=== PATIENT | female | born 1950 | race Caucasian/White ===

== ENCOUNTER 2022-07-18 12:33 | Inpatient (IN) | payer OTHER ==
[2022-07-18 15:12] VITALS: BMI 23.1
[2022-07-18] MEDS ORDERED: ACETAMINOPHEN 325 MG TABLET (FP) PO PRN ×2 (15:43)
[2022-07-18] MEDS ORDERED: MAG HYDROX/AL HYDROX/SIMETH 30 ML UNIT-DOSE CUP PO PRN (15:43)
[2022-07-18] MEDS ORDERED: BENZOCAINE/MENTHOL (CHLORASEPTIC ) LOZENGE MM PRN (15:43)
[2022-07-18] MEDS ORDERED: LORazepam 1 MG TABLET PO PRN (15:43)
[2022-07-18] MEDS ORDERED: ONDANSETRON *ODT* 4 MG TABLET SL PRN ×2 (15:43→21:21)
[2022-07-18] MEDS ORDERED: POLYETHYLENE GLYCOL (HEALTHYLAX) 3350 17 GM PACKET PO PRN (15:43)
[2022-07-18] MEDS ORDERED: IBUPROFEN 400 MG TABLET (FP) PO PRN (15:43)
[2022-07-18] MEDS ORDERED: IBUPROFEN 600 MG TABLET (FP) PO PRN (15:43)
[2022-07-18] MEDS ORDERED: DICYCLOMINE HCL 10 MG CAPSULE PO PRN (15:43)
[2022-07-18] MEDS ORDERED: BISMUTH SUBSALICYLATE 524 MG/30 ML PO PRN (15:43)
[2022-07-18] MEDS ORDERED: LOPERAMIDE HCL 2 MG CAPSULE PO PRN (15:43)
[2022-07-18] MEDS ORDERED: hydrOXYzine PAMOATE 25 MG CAPSULE (FP) PO PRN (15:43)
[2022-07-18] MEDS ORDERED: METHOCARBAMOL 500 MG TABLET PO PRN (15:43)
[2022-07-18] MEDS ORDERED: MAGNESIUM HYDROX 2400MG/30ML ORAL SUSPENSION 30 ML CUP PO PRN (15:43)
[2022-07-18] MEDS ORDERED: PRENATAL VITAMINS W/ FOLIC ACID TABLET (FP) PO SCH (15:45)
[2022-07-18] MEDS ORDERED: ALBUTEROL SO4 HFA INHALER IH ONE (17:23)
[2022-07-18] MEDS: LORazepam 2 MG TABLET PO SCH ×2 (17:56→22:25)
[2022-07-18] MEDS: ALBUTEROL SO4 HFA INHALER IH PRN (17:59)
[2022-07-18] MEDS ORDERED: DIGOXIN 0.125 MG TABLET PO ONE ×2 (21:13→23:45)
[2022-07-18] MEDS ORDERED: MELATONIN 5 MG TABLETS PO ONE (21:19)
[2022-07-18] MEDS ORDERED: THIAMINE HCL 100 MG TABLET (FP) PO SCH (22:00)
[2022-07-18] MEDS ORDERED: MELATONIN 5 MG TABLETS PO SCH (22:00)
[2022-07-18] MEDS: THIAMINE HCL 100 MG TABLET (FP) PO SCH (22:25)
[2022-07-19] MEDS: ALBUTEROL SO4 HFA INHALER IH PRN (04:25)
[2022-07-19] MEDS: LORazepam 2 MG TABLET PO SCH ×4 (06:25→22:40)
[2022-07-19] MEDS: PRENATAL VITAMINS W/ FOLIC ACID TABLET (FP) PO SCH (10:44)
[2022-07-19] MEDS: DIGOXIN 0.125 MG TABLET PO SCH (10:48)
[2022-07-19] MEDS: FUROSEMIDE 40 MG TABLET (FP) PO SCH (11:32)
[2022-07-19] MEDS ORDERED: LOPERAMIDE HCL 2 MG CAPSULE PO ONE (11:43)
[2022-07-19] MEDS: THIAMINE HCL 100 MG TABLET (FP) PO SCH (22:40)
[2022-07-20] MEDS: LORazepam 1 MG TABLET PO SCH ×4 (06:30→22:13)
[2022-07-20] MEDS: ALBUTEROL SO4 HFA INHALER IH PRN (06:36)
[2022-07-20] MEDS ORDERED: DIGOXIN 0.125 MG TABLET PO SCH (10:00)
[2022-07-20] MEDS: FUROSEMIDE 40 MG TABLET (FP) PO SCH (10:20)
[2022-07-20] MEDS: DIGOXIN 0.125 MG TABLET PO SCH (10:21)
[2022-07-20] MEDS: PRENATAL VITAMINS W/ FOLIC ACID TABLET (FP) PO SCH (10:21)
[2022-07-20] MEDS: THIAMINE HCL 100 MG TABLET (FP) PO SCH (22:12)
[2022-07-21] MEDS ORDERED: LORazepam 0.5 MG TABLET PO PRN
[2022-07-21] MEDS: ALBUTEROL SO4 HFA INHALER IH PRN ×2 (01:39→08:46)
[2022-07-21] MEDS: LORazepam 0.5 MG TABLET PO SCH ×3 (05:39→17:41)
[2022-07-21 06:36] VITALS: RESP 16
[2022-07-21] MEDS ORDERED: METHOCARBAMOL 500 MG TABLET PO ONE (08:30)
[2022-07-21] MEDS: DIGOXIN 0.125 MG TABLET PO SCH (10:40)
[2022-07-21] MEDS: FUROSEMIDE 40 MG TABLET (FP) PO SCH (10:41)
[2022-07-21] MEDS: PRENATAL VITAMINS W/ FOLIC ACID TABLET (FP) PO SCH (10:41)
[2022-07-21 15:47] LABS: INR 1.28 (0.83-1.09); PROTHROMBIN TIME (PATIENT) 14.7 SEC (9.7-13.0)
[2022-07-21 16:05] LABS: CALCIUM 8.3 mg/dL (8.5-10.1)
[2022-07-21 16:06] LABS: ALBUMIN 2.8 g/dl (3.4-5.0); BLOOD UREA NITROGEN 20.2 mg/dL (7-18)
[2022-07-21 16:09] LABS: CREATININE 0.7 mg/dL (0.55-1.3)
[2022-07-21 16:10] LABS: TOT PROT 6.1 g/dl (6.4-8.2)
[2022-07-21 16:11] LABS: BILIRUBIN,TOTAL 0.8 mg/dL (0.2-1)
[2022-07-21 16:18] LABS: HEMATOCRIT 27.9 % (32.4-45.2); HEMOGLOBIN 8.7 GM/dL (10.7-15.3); MCHC 31.1 g/dl (32.0-36.0); MEAN CELL VOLUME 77.1 fl (80-96); PLATELET COUNT 293 10^3/uL (134-434); RBC 3.62 M/mm3 (3.60-5.2); RDW 21.7 % (11.6-15.6); WHITE BLOOD COUNT 8.5 K/mm3 (4.0-10.0)
[2022-07-21 17:00] VITALS: BP 133/68; PULSE 102; TEMP 98
[2022-07-22] MEDS ORDERED: LORazepam 0.5 MG TABLET PO ONE (05:00)
== END 2022-07-21 20:25 | disposition other institution (70) | DRG 897 ==
LOC: YASAS 12:33 → Y6N 16:27
PROVIDERS: ADMIT Allergy & Immunology; ATTEND Family Medicine
PROC: HZ2ZZZZ Detoxification Services for Substance Abuse Treatment (ICD-10-PCS; principal; 2022-07-18)
DX: F10.230 Alcohol dependence with withdrawal, uncomplicated (principal); I48.20 Chronic atrial fibrillation, unspecified; I11.0 Hypertensive heart disease with heart failure; I50.9 Heart failure, unspecified; J45.20 Mild intermittent asthma, uncomplicated; Z87.891 Personal history of nicotine dependence
CPT/HCPCS: 36415; 80053; 80162; 82140; 85027; 85610; 86780; 87811; C9803-CS; U0003; U0005